=== PATIENT | female | born 1965 | race Caucasian/White ===

== ENCOUNTER → 2018-01-06 | Outpatient (CLI) | payer OTHER ==
[~2018-01-06] MED LIST: BUPR1PAT7 TP; CYCL-259 PO; DIAZ5TAB PO; OXYC15TA PO; OXYC5CAP2 PO; SENN-1 PO
== END | disposition home or self-care (01) ==
LOC: RAD 10:31
PROVIDERS: ATTEND Neurological Surgery
DX: M51.16 Intervertebral disc disorders with radiculopathy, lumbar region (principal); M54.2 Cervicalgia
CPT/HCPCS: 72050; 72110

== ENCOUNTER 2019-05-08 12:57 | Outpatient (CLI) | payer OTHER ==
[~2019-05-08 12:57] MED LIST changes: -SENN-1 PO; +SENN-92 PO
== END 2019-05-08 23:59 | disposition home or self-care (01) ==
LOC: RAD 12:57
PROVIDERS: ATTEND Family Medicine
DX: M25.532 Pain in left wrist (principal)